=== PATIENT | female | born 1960 | race Caucasian/White ===

== ENCOUNTER → 2016-05-22 | Outpatient (CLI) | payer BC ==
--- NOTE | 2016-05-22 14:04 | US ---
EXAMINATION TYPE: US thyroid st tissue head/neck DATE OF EXAM: 05/22/2016 1:14 PM COMPARISON: IN PACS CLINICAL HISTORY: E05.90 THRYOTOXICOSIS W/O CRISIS OR STORM. F/U Nodules GLAND SIZE: Right Lobe: 5.0 x 1.7 x 1.9 cm Overall Parenchyma: heterogenous Left Lobe: 4.6 x 1.7 x 1.6 cm Overall Parenchyma: heterogeneous Isthmus Thickness: 0.3 cm NODULES RIGHT: # of nodules measured on right: 3 1. 1.4 X 1.3 x 1.3 cm hypoechoic mixed nodule at the mid pole with well-defined margins; This nodul e is wider than tall and shows intranodular vascularity. Prior size: 1.2 x 1.3 x 1.4 cm 2. 0.8 X 0.6 x 0.7 cm hypoechoic solid nodule at the lower pole with well-defined margins; This nodu le is wider than tall and shows intranodular vascularity. Prior size: 1.0 x 0.6 x 0.9 cm 3. 0.7 X 0.5 x 0.6 cm isoechoic solid nodule at the lower pole with poorly defined margins; This nod ule is wider than tall and shows intranodular vascularity. Prior size: 0.9 x 0.4 x 0.9 cm LEFT: # of nodules measured on left: 4 1. 1.2 X 1.1 x 1.2 cm isoechoic solid nodule at the lower pole with well-defined margins; This nodu le is wider than tall and shows intranodular vascularity. Prior size: 1.3 x 1.1 x 1.2 cm 2. 1.2 X 0.7 x 0.9 cm isoechoic solid nodule at the mid pole with well-defined margins; This nodule is wider than tall and shows intranodular vascularity. Prior size: 1.5 x 0.8 x 1.1 cm 3. 0.7 X 0.7 x 0.6 cm isoechoic solid nodule at the upper pole with well-defined margins; This nodu le is wider than tall and shows intranodular vascularity. Prior size: 1.4 x 0.8 x 0.9 cm 4. 0.7 X 0.4 x 0.5 cm hypoechoic mixed nodule at the upper pole with well-defined margins; This nod ule is wider than tall and shows intranodular vascularity. Prior size: 0.7 x 0.4 x 0.6 cm ISTHMUS: # of nodules measured in the isthmus: TECHNOLOGIST IMPRESSION: Bilateral neck scanned, no abnormal lymphadenopathy noted/ Stable nodules b ilaterally IMPRESSION: 1. Multiple bilateral thyroid nodules. A couple of these nodules may have increased slightly in size over the interval detailed above.
== END | disposition home or self-care (01) ==
LOC: RADUSWWP 12:24
PROVIDERS: ATTEND Internal Medicine Endocrinology, Diabetes & Metabolism
DX: E04.2 Nontoxic multinodular goiter (principal); E05.90 Thyrotoxicosis, unspecified without thyrotoxic crisis or storm
CPT/HCPCS: 76536

== ENCOUNTER → 2016-05-22 | Outpatient (CLI) | payer BC ==
[2016-05-22 09:49] LABS: CH 31.6; CHCM 33.7; HCT 42.5 % (34.0-46.0); HDW 2.49; HGB 14.5 gm/dL (11.4-16.0); MCH 32.1 pg (25.0-35.0); MCHC 34.1 g/dL (31.0-37.0); MCV 94.1 fL (80.0-100.0); Mean Platelet Volume 7.6; RBC 4.52 m/uL (3.80-5.40); RDW 12.2 % (11.5-15.5); WBC 9.5 k/uL (3.8-10.6)
[2016-05-22 10:17] LABS: ALT 32 U/L (9-52); AST 22 U/L (14-36); Alkaline Phosphatase 74 U/L (38-126); Anion Gap 13 mmol/L; Blood Urea Nitrogen 17 mg/dL (7-17); Calcium 9.7 mg/dL (8.4-10.2); Carbon Dioxide 24 mmol/L (22-30); Chloride 109 mmol/L (98-107); Glucose 204 mg/dL (74-99); Non-African American GFR(MDRD) >60 (>60 ml/min/1.73 sqM); Potassium 4.3 mmol/L (3.5-5.1); Sodium 146 mmol/L (137-145); Total Bilirubin 0.5 mg/dL (0.2-1.3); Total Protein 7.5 g/dL (6.3-8.2)
== END | disposition home or self-care (01) ==
LOC: LABWHC1 09:24
PROVIDERS: ATTEND Internal Medicine Endocrinology, Diabetes & Metabolism
DX: E05.90 Thyrotoxicosis, unspecified without thyrotoxic crisis or storm (principal)
CPT/HCPCS: 36415; 80053; 84439; 84443; 84445; 84480; 85027

== ENCOUNTER 2016-05-29 07:20 | Day surgery (SDC) | payer BC ==
[2016-05-23 15:33] VITALS: BMI 30.5
--- NOTE | 2016-05-28 14:22 | HP ---
DATE OF ADMISSION: 05/29/2016 Nadia Cerna is a 55-year-old patient seen with progressive right knee pain. After having options regarding treatment discussed, she elected to proceed with right knee arthroscopy. Consent was obtained. Medical clearance by Dr. Franky Paulino. Past medical history is hypertension, insulin-dependent diabetes, gastroesophageal reflux disease, hyperlipidemia, depression. Past surgical history is breast biopsy, cholecystectomy, hysterectomy, knee surgery, tonsillectomy. Daily medications are: 1. Aspirin. 2. Cozaar. 3. Gabapentin. 4. NovoLog. 5. Prilosec. 6. Topamax. 7. Zocor. 8. Mobic. 9. Cymbalta. Allergies are AUGMENTIN. SOCIAL HISTORY: Patient currently smokes cigarettes. Physical evaluation of the right knee: Her range of motion is 0 to 120 degrees, tenderness along the medial and lateral joint lines. Positive medial Bebeto's, positive lateral Bebeto's. Ligaments stable. Hip rotation without pain. Distal neurovascular exam is intact. Radiographs which were obtained of the right knee revealed mild osteoarthritis. An MRI of the right knee was obtained revealing an effusion. IMPRESSION: Internal derangement of right knee with meniscal tear versus osteochondral tear. PLAN: Right knee arthroscopy with partial meniscectomy versus chondroplasty and debridement.
[~2016-05-29 07:20] MED LIST: CLINDAMYCIN 900 MG in DEXTROSE 5% IN WATER 50 ML IVPB ONE; DEXAMETHASONE SOD PHOSPHATE 10 MG/ML 1 ML VIAL IV ONE; HYDROmorphone 1 MG/ML 1 ML SYRINGE IVP PRN; LACTATED RINGERS 1,000 ML IV SCH; LIDOCAINE 1% 20 ML VIAL (10MG/ML) FOR IV START INTRADERMA PRN; SCOPOLAMINE 1.5MG/72HR PATCH TRANSDERM ONE
[2016-05-29] MEDS ORDERED: ONDANSETRON 4 MG/2 ML VIAL IVP ONE (08:15)
[2016-05-29 08:22] LABS: Glucose,Whole Blood 124 mg/dL (75-99)
[2016-05-29] MEDS ORDERED: SUCCINYLCHOLINE CHLORIDE 100 MG/5 ML SYR IV ONE (08:30)
[2016-05-29] MEDS ORDERED: MIDAZOLAM 2 MG/2 ML VIAL ONE (08:30)
[2016-05-29] MEDS ORDERED: GLYCOPYRROLATE 0.2 MG/ML 2 ML VIAL ONE (08:30)
[2016-05-29] MEDS ORDERED: KETAMINE 10 MG/ML 20 ML VIAL ONE (08:30)
[2016-05-29] MEDS ORDERED: PROPOFOL 10 MG/ML 20 ML VIAL IV ONE (08:30)
[2016-05-29] MEDS ORDERED: NEOSTIGMINE 1 MG/ML 10 ML VIAL ONE (08:30)
[2016-05-29] MEDS ORDERED: ROCURONIUM BROMIDE 10 MG/ML 10 ML VIAL IV ONE (08:30)
[2016-05-29] MEDS ORDERED: fentaNYL (PF) 50 MCG/ML 2 ML AMP ONE (08:30)
[2016-05-29] MEDS ORDERED: BUPIVACAIN-EPI 0.25%-1:200,000 30 ML VIAL INTRAARTIC ONE (08:30)
[2016-05-29] MEDS ORDERED: LIDOCAINE 1% INJ 10MG/ML (20 ML MDV) ONE (08:30)
--- NOTE | 2016-05-29 09:28 | P.OP ---
Date of Procedure: 05/29/16 Preoperative Diagnosis: Internal derangement right knee Postoperative Diagnosis: 1. Tear medial meniscus right knee 2. 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 Grade 2 chondromalacia lateral femoral condyle right knee 4. Reactive synovitis medial and suprapatellar compartments right knee Procedure(s) Performed: 1. Arthroscopic partial medial meniscectomy right knee 2. Arthroscopic chondroplasty medial femoral condyle right knee 3. Arthroscopic chondroplasty lateral femoral condyle right knee 4. Arthroscopic partial synovectomy medial and suprapatellar compartments right knee Anesthesia: GETA Surgeon: Soto Maldonado Estimated Blood Loss (ml): 10 Pathology: none sent Condition: stable Disposition: PACU Indications for Procedure: 55-year-old patient seen with progressive right knee pain. After having options regarding treatment discussed, she elected to proceed with right knee arthroscopy. Operative Findings: See description of procedure Description of Procedure: Patient was taken to the operative suite. Patient underwent a general anesthetic by the department of anesthesia. Patient was given preoperative antibiotics. The right lower extremity was placed in a well-padded arthroscopic leg lugo. The right leg was prepped and draped in the normal sterile orthopedic fashion. A lateral parapatellar and suprapatellar incision was made. Trochars were inserted. Arthroscopy was initiated. Suprapatellar pouch revealed diffuse reactive synovitis. The patellofemoral joint appeared to articulate congruently. There was grade 1/2 chondromalacia of the patella with no osteochondral tears present. The scope was guided into the medial gutter. No loose bodies or plica were identified. The scope was then guided into the medial compartment. A medial parapatellar incision was made. Trocar inserted followed by probe. There was a radial tear posterior horn medial meniscus extending just into the midbody area. There were grade 2 and 3 chondromalacia changes the medial femoral condyle with some osteochondral tears present. There were grade 1 chondromalacia changes of the tibial plateau. Reactive synovitis anteriorly. No loose bodies. A partial medial meniscectomy performed on a stable tissue. I performed a chondroplasty of medial femoral condyle and partial synovectomy. The residual meniscus was found to be stable as was the residual osteochondral surface of medial femoral condyle. Scope and probe were then guided into the intercondylar notch. Cruciates were identified, probed and found to be stable. The scope and probe were then guided into lateral compartment. The lateral meniscus was found to be stable. There was an area of grade 2 chondromalacia central weightbearing surface lateral femoral condyle with osteochondral tears present. Grade 1 chondromalacia of the tibial plateau. No reactive synovitis or loose bodies. A chondroplasty was performed of lateral femoral condyle getting down to stable tissue. The residual area was probed and found to be stable. The scope was in guided back into the suprapatellar compartment. Motorize shaver was introduced into the super compartment. I debrided some piecemeal fragments of meniscus. I performed a partial synovectomy. Shaver was removed. I took one more look around the entire knee, no residual debris. Instruments were now removed from the joint. The joint was infiltrated with .25% Marcaine. Steri-Strips were applied to the portal sites. Sterile dressings were applied. The patient was placed into a MALENA hose. No tourniquet was utilized. The patient was awakened, transferred to a bed and taken to recovery stable satisfactory condition.
[2016-05-29] MEDS ORDERED: LACTATED RINGERS 1,000 ML IV ONE (09:43)
[2016-05-29 09:49] VITALS: TEMP 96.7
[2016-05-29 09:53] LABS: Glucose,Whole Blood 131 mg/dL (75-99)
[2016-05-29 10:16] VITALS: PULSE 90; RESP 18
[2016-05-29 10:31] VITALS: BP 140/89
== END 2016-05-29 10:50 | disposition home or self-care (01) ==
LOC: OR 07:20
PROVIDERS: ATTEND Orthopaedic Surgery
DX: S83.241A Other tear of medial meniscus, current injury, right knee, initial encounter (principal); M65.9 Synovitis and tenosynovitis, unspecified; M22.41 Chondromalacia patellae, right knee; I10 Essential (primary) hypertension; E03.9 Hypothyroidism, unspecified; E78.5 Hyperlipidemia, unspecified; E10.9 Type 1 diabetes mellitus without complications; F32.9 Major depressive disorder, single episode, unspecified; E55.9 Vitamin D deficiency, unspecified; F17.210 Nicotine dependence, cigarettes, uncomplicated; J45.909 Unspecified asthma, uncomplicated; B07.9 Viral wart, unspecified; M50.10 Cervical disc disorder with radiculopathy, unspecified cervical region; M85.80 Other specified disorders of bone density and structure, unspecified site; M94.9 Disorder of cartilage, unspecified; Z79.1 Long term (current) use of non-steroidal anti-inflammatories (NSAID); Z79.82 Long term (current) use of aspirin; Z79.4 Long term (current) use of insulin; Z79.891 Long term (current) use of opiate analgesic; Z79.51 Long term (current) use of inhaled steroids; Z79.899 Other long term (current) drug therapy; Z88.0 Allergy status to penicillin; X58.XXXA Exposure to other specified factors, initial encounter; Z96.41 Presence of insulin pump (external) (internal)
CPT/HCPCS: 29881; J2250; J1100; J2710; J2405; J2001; J3010; J1170; J0330; J2704

== ENCOUNTER → 2016-11-05 | Outpatient (CLI) | payer BC ==
--- NOTE | 2016-11-05 11:21 | NM ---
EXAMINATION TYPE: NM gastric emptying study DATE OF EXAM: 11/05/2016 COMPARISON: NONE HISTORY: Gastroparesis Following administration of mCi Tc 99m Sulfur Colloid with 1 cup of oatmeal projection images of the abdomen were obtained 5 minutes post ingestion. When possible, both anterior and posterior projection images were obtained to allow the calculation of the geometric mean activity. Clearance: 17 % Half-life: 240 min Gastroesophageal reflux: None IMPRESSION: Gastric emptying: Delayed with less than 17% emptying Gastroesophageal reflux: None Gastric emptying normal percentage values: 30 minutes: <70% of retention (> 30% emptying) suggests abnormally fast emptying. 60 minutes: <90% retention (>10% emptying) is normal; less than 30% retention (>70% emptying) suggest s abnormally rapid emptying. 90 minutes: <65% retention (> 35% emptying) is normal. 120 minutes: <60% retention (> 40% emptying) is normal. 180 minutes: <30% retention (> 70% emptying) is normal. Gastric emptying T-1/2: Solid: The normal range is 60-105 minutes Liquid only: Normal range is 10-45 minutes. Liquid only-children: At 60 minutes, normal range is 44-58 % . Liquid only-infants: At 60 minutes, normal range is 32-64 %. Additional references: Gastric Emptying Scintigraphy [email or web address]
== END | disposition home or self-care (01) ==
LOC: RADNMMAIN 07:24
PROVIDERS: ATTEND Internal Medicine
DX: K31.84 Gastroparesis (principal)
CPT/HCPCS: 78264; A9541

== ENCOUNTER → 2016-11-06 | Outpatient (CLI) | payer BC | END | disposition home or self-care (01) | LOC: LABWHC1 10:10 | PROVIDERS: ATTEND Surgery | DX: Z09 Encounter for follow-up examination after completed treatment for conditions other than malignant neoplasm (principal); Z86.39 Personal history of other endocrine, nutritional and metabolic disease | CPT/HCPCS: 36415; 84439; 84443; 84481 ==

== ENCOUNTER → 2017-01-01 | Outpatient (CLI) | payer BC | END | disposition home or self-care (01) | LOC: LABWHC1 11:44 | PROVIDERS: ATTEND Surgery Plastic and Reconstructive Surgery | DX: E04.1 Nontoxic single thyroid nodule (principal) | CPT/HCPCS: 36415; 84439; 84443; 84481 ==

== ENCOUNTER 2017-01-07 09:31 | Observation (INO) | payer BC ==
[2016-12-30 16:23] VITALS: BMI 29.9
[~2017-01-07 09:31] MED LIST changes: -CLINDAMYCIN 900 MG in DEXTROSE 5% IN WATER 50 ML IVPB ONE; -DEXAMETHASONE SOD PHOSPHATE 10 MG/ML 1 ML VIAL IV ONE; +HYDROmorphone 0.5 MG/0.5 ML SYRINGE IVP PRN; -HYDROmorphone 1 MG/ML 1 ML SYRINGE IVP PRN; -LIDOCAINE 1% 20 ML VIAL (10MG/ML) FOR IV START INTRADERMA PRN; +MIDAZOLAM 2 MG/2 ML VIAL IV PRN; +Pre Op ABX Message 1 EACH MISC MISCELLANE ONE; -SCOPOLAMINE 1.5MG/72HR PATCH TRANSDERM ONE
[2017-01-07] MEDS: DEXAMETHASONE SOD PHOSPHATE 10 MG/ML 1 ML VIAL IV ONE ×2 (10:14→17:31)
[2017-01-07] MEDS ORDERED: LIDOCAINE 1% 20 ML VIAL (10MG/ML) FOR IV START INTRADERMA ONE (10:14)
[2017-01-07] MEDS: ONDANSETRON 4 MG/2 ML VIAL IVP ONE ×2 (10:14→17:31)
[2017-01-07] MEDS: SCOPOLAMINE 1.5MG/72HR PATCH TRANSDERM ONE ×2 (10:14→17:32)
[2017-01-07] MEDS: HEPARIN SODIUM,PORCINE 5,000 UNIT/ML 1 ML VIAL SQ ONE ×2 (10:15→17:30)
[2017-01-07] MEDS ORDERED: ceFAZolin 1,000 MG in DEXTROSE/WATER 1 50ML.BAG IVPB STA (10:17)
[2017-01-07 10:23] LABS: Glucose,Whole Blood 160 mg/dL (75-99)
[2017-01-07] MEDS ORDERED: HEPARIN SODIUM,PORCINE 5,000 UNIT/ML 1 ML VIAL SQ ONE (11:02)
[2017-01-07] MEDS ORDERED: PHENYLEPHRINE-0.9% NACL SYG 1 MG/10 ML SYRINGE ONE (11:24)
[2017-01-07] MEDS ORDERED: PROPOFOL 10 MG/ML 20 ML VIAL IV ONE (11:24)
[2017-01-07] MEDS ORDERED: fentaNYL (PF) 50 MCG/ML 2 ML AMP ONE (11:24)
[2017-01-07] MEDS ORDERED: HYDROmorphone (PF) 1 MG/ML ONE (11:24)
[2017-01-07] MEDS ORDERED: SUCCINYLCHOLINE CHLORIDE 100 MG/5 ML SYR IV ONE (11:24)
[2017-01-07] MEDS ORDERED: LIDOCAINE 1% INJ 10MG/ML (20 ML MDV) ONE (11:24)
[2017-01-07] MEDS ORDERED: MIDAZOLAM 2 MG/2 ML VIAL ONE (11:24)
[2017-01-07] MEDS ORDERED: LACTATED RINGERS 1,000 ML IV ONE (13:03)
[2017-01-07 13:41] LABS: Glucose,Whole Blood 192 mg/dL (75-99)
[2017-01-07 14:33] LABS: Glucose,Whole Blood 198 mg/dL (75-99)
[2017-01-07] MEDS ORDERED: THROMBIN (BOVINE) 5,000 UNIT VIAL TOPICAL ONE (14:41)
[2017-01-07] MEDS ORDERED: GELATIN SPONGE,ABSORB (LARGE) 1 EACH SPONGE TOPICAL ONE (14:41)
[2017-01-07] MEDS ORDERED: HYDROcodone/APAP 5-325MG 1 EACH TAB PO PRN (15:11)
[2017-01-07] MEDS ORDERED: BENZOCAINE/MENTHOL LOZENG 1 EACH LOZENGE MUCOUS MEM PRN (15:11)
[2017-01-07] MEDS ORDERED: NALOXONE 0.4 MG/ML 1 ML VIAL IV PRN (15:11)
[2017-01-07] MEDS ORDERED: ONDANSETRON 4 MG/2 ML VIAL IVP PRN (15:11)
--- NOTE | 2017-01-07 15:11 | P.OP ---
Date of Procedure: 01/07/17 Preoperative Diagnosis: Hyperthyroidism, multiple bilateral nodules Postoperative Diagnosis: Hyperthyroidism, multiple bilateral nodules Procedure(s) Performed: Total thyroidectomy Anesthesia: HUBER Surgeon: Jillian Rehman Estimated Blood Loss (ml): 80 IV fluids (ml): 1,500 Urine output (ml): 250 Pathology: other (Thyroid gland, tissue sent for r/o parathyroid intraoperatively) Condition: stable Disposition: PACU Indications for Procedure: Hyperthyroidism Operative Findings: Inflamed thyroid gland was scar tissue noted greater on the right than on the left Description of Procedure: The patient was taken to the operating room and following induction of general anesthesia the patient was placed in the beach-chair position with hyperextension of the neck. The neck was prepped and draped in a sterile fashion. Prior to this nerve stimulator probes were placed in the anterior chest wall. An incision was made in the neck anteriorly approximately 2 fingerbreadths above the sternal notch. This was placed through a prior collar incision which had been used for a cervical neck surgery. The dissection was carried through the skin and subcutaneous tissue down to the platysma. Superior and inferior skin flaps were developed. The strap muscles were in the midline. There was scar tissue present. The right lobe of the thyroid was approached initially. A moderate to extensive scar tissue involving the right lobe of the thyroid was noted. This was carefully dissected free and the superior pole of the left was identified and the superior pole vessels were ligated and divided using the Harmonic scalpel. A similar fashion the inferior pole vessels were identified these were ligated and divided using the Harmonic scalpel as well. The lobe was rotated medially and the identified and these proved to be superior inferior parathyroids which were preserved. The recurrent laryngeal nerve was identified and preserved. The lobe was rotated up onto the trachea. Multiple small vessels were ligated and divided using the Harmonic scalpel. A small portion of tissue on the thyroid gland was suspicious for parathyroid tissue and this was sent for frozen section which was negative for parathyroid tissue. The left lobe of the thyroid was then approached. The lobe was rotated medially. Again there was scar tissue present but not as extensive as on the right side. Inferior pole vessels were identified these were ligated and divided as were superior pole vessels. The lobe was rotated medially being careful to identify and preserve the recurrent laryngeal nerve. The superior and inferior parathyroids were identified and preserved. Again multiple small vessels were identified which were ligated and divided. The gland was dissected onto the trachea and the gland was removed. Palpation of the neck did not reveal any adenopathy of concern on either side. The neck was then well irrigated. There was no evidence of any bleeding. Gelfoam and thrombin was placed at the ligament of Zhu on each side. A Priya drain was split and put in place. The strap muscles were closed using a 3-0 Vicryl suture. This was followed by closure of the platysma using 3-0 Vicryl suture. The skin was closed with 4-0 Monocryl. The drain was secured with a nylon suture. All instrument and sponge counts were correct at the end of the case. The patient tolerated procedure in stable condition.
[2017-01-07 15:48] LABS: Glucose,Whole Blood 201 mg/dL (75-99)
[2017-01-07] MEDS ORDERED: INSULIN LISPRO (humaLOG) 300 UNIT/3 ML VIAL SQ ONE (15:50)
[2017-01-07] MEDS: HEPARIN SODIUM,PORCINE 5,000 UNIT/ML 1 ML VIAL SQ SCH ×2 (17:33→23:20)
[2017-01-07] MEDS: SODIUM CHLORIDE 0.9% 1,000 ML IV SCH (17:56)
[2017-01-07] MEDS: CALCIUM CARB-VIT D 500MG-200UN 1 EACH TAB PO SCH (18:56)
[2017-01-07] MEDS: HYDROmorphone 1 MG/ML 1 ML SYRINGE IV PRN (21:07)
[2017-01-07] MEDS ORDERED: LORazepam 0.5 MG TAB PO PRN (21:39)
[2017-01-07] MEDS ORDERED: CYCLOBENZAPRINE 10 MG TAB PO PRN (21:39)
[2017-01-07] MEDS: TOPIRAMATE 25 MG TAB PO SCH ×2 (22:59→23:04)
[2017-01-07] MEDS: lamoTRIgine 100 MG TAB PO SCH (23:00)
[2017-01-07] MEDS: METOCLOPRAMIDE 10 MG TAB PO SCH (23:01)
[2017-01-07] MEDS: GABAPENTIN 100 MG CAP PO SCH (23:03)
[2017-01-07] MEDS: ZIPRASIDONE 60 MG CAP PO SCH (23:05)
[2017-01-07] MEDS: Insulin Aspart (For Pump) 100 UNIT/ML VIAL SQ-PUMP SCH (23:11)
[2017-01-08] MEDS: HYDROmorphone 1 MG/ML 1 ML SYRINGE IV PRN ×6 (00:27→20:14)
[2017-01-08] MEDS: SODIUM CHLORIDE 0.9% 1,000 ML IV SCH ×2 (03:02→17:45)
--- NOTE | 2017-01-08 07:14 | CONS ---
CONSULTATION DATE OF CONSULTATION: January 07, 2017. REASON FOR CONSULTATION: Medical management requested by Dr. Latesha Rehman. CONSULTATION: This is a pleasant 56-year-old patient who has a multinodular goiter. The patient underwent a total thyroidectomy today. The patient having some pain at the operative site. Allowed clear liquids. The patient has a rather extensive medical history. Chronic stable medical conditions include diabetes mellitus type 2, fibromyalgia, GERD, hyperlipidemia, hypertension, seizure disorder, hypothyroid, hiatal hernia, migraines, initial bowel syndrome, back and neck pain. REVIEW OF SYSTEMS: Review of systems difficult to obtain as the patient is rather lethargic. PAST MEDICAL HISTORY: Diabetes mellitus type 2, fibromyalgia, GERD, hyperlipidemia, hypertension, seizure disorder, hypothyroid, hiatal hernia, migraines, irritable bowel syndrome, back and neck pain. PAST SURGICAL HISTORY: Breast surgery, cholecystectomy, ear surgery, hysterectomy, tonsillectomy, tubal ligation, bilateral breast surgery, bilateral breast lumpectomy, bilateral carpal tunnel release, right thumb surgery, EGD, right ear tube, anterior cervical decompression and fusion. Past psych history of anxiety, depression. SOCIAL HISTORY: The patient quit smoking in 1992, smoked a pack a pack and half a day for 30 years. Has medical marijuana. The patient is . FAMILY HISTORY: Patient is adopted. PHYSICAL EXAMINATION: Vital signs on presentation on examination temperature 97.3, pulse 105, respiration 14, blood pressure 140/72, pulse ox 95% on 3 L. GENERAL APPEARANCE: Well built, BMI 30, lying in bed, tired appearing. Eyes: Pupils are equal. Conjunctivae normal. HEENT: Oral cavity normal. Neck dressing in place. JVD unable to assess. Respiratory effort lungs fair entry. CARDIOVASCULAR: First and second sounds normal. No edema. ABDOMEN: Soft, nontender. Liver and spleen not palpable. Lymphatics: No lymph nodes palpable in neck or axillae. PSYCHIATRY: Alert and oriented x3. Mood and affect normal. Neurological: Pupils equal, cranial nerves grossly intact. Power and sensation grossly intact. ASSESSMENT: 1. Total thyroidectomy for multinodular goiter. 2. Diabetes mellitus type 2 on insulin, chronically insulin pump. 3. Chronic fibromyalgia. 4. Gastroesophageal reflux disease. 5. Essential hypertension. 6. Hyperlipidemia. 7. Seizure disorder chronic. 8. Hiatal hernia. 9. Anxiety, depression, not otherwise specified. 10.Obesity; BMI 30. PLAN: Home medications are resumed. Patient is able to adjust insulin pump based on the sugars. Diet will be advanced per surgery. The patient has got Venodyne boots for DVT prophylaxis. Care was discussed with the patient. The patient does follow with Dr. Paulino as a family doctor and Dr. Cummingss, professor computer science. Care was discussed with the patient. Thank you, Dr. Rehman. MMTODL / KELLYN: [id number] /
[2017-01-08] MEDS: CALCIUM CARB-VIT D 500MG-200UN 1 EACH TAB PO SCH ×2 (08:28→17:42)
[2017-01-08] MEDS: HEPARIN SODIUM,PORCINE 5,000 UNIT/ML 1 ML VIAL SQ SCH ×3 (08:29→23:13)
[2017-01-08] MEDS: DULoxetine HCL 60 MG CAPSULE.DR PO SCH (08:29)
[2017-01-08] MEDS: lamoTRIgine 100 MG TAB PO SCH ×2 (08:30→20:10)
[2017-01-08] MEDS: GABAPENTIN 100 MG CAP PO SCH ×2 (08:30→20:10)
[2017-01-08] MEDS: LOSARTAN 25 MG TAB PO SCH (08:31)
[2017-01-08] MEDS: TOPIRAMATE 25 MG TAB PO SCH ×2 (08:32→20:11)
[2017-01-08] MEDS: METOCLOPRAMIDE 10 MG TAB PO SCH ×3 (08:32→23:13)
[2017-01-08] MEDS: ZIPRASIDONE 40 MG CAP PO SCH (08:33)
--- NOTE | 2017-01-08 08:58 | P.PN ---
Subjective Progress Note Date: 01/08/17 56-year-old female seen and examined this morning the dressing removed from operative site moderate amount of bloody drainage noted. Drain in place. Patient is postop total thyroidectomy for hyperthyroidism multiple bilateral nodules. No facial numbness noted voice is not hoarse. Patient states is able to swallow without difficulty. Patient does have a history of a prior cervical neck surgery Calcium this morning 9.2 Objective - Vital Signs Vital signs: Vital Signs Temp 97.0 F L 01/08/17 08:00 Pulse 75 01/08/17 08:00 Resp 20 01/08/17 08:00 BP 148/70 01/08/17 08:00 Pulse Ox 97 01/08/17 08:00 Intake & Output 01/07/17 01/08/17 01/08/17 18:59 06:59 18:59 Intake Total 1750 970 Output Total 330 Balance 1420 970 Weight 74.389 kg Intake: IV 1750 Intake, IV Titration 970 Amount Sodium Chloride 0.9% 1, 970 000 ml @ 100 mls/hr IV . Q10H REMY Rx#:[id number] Output: Urine 250 Estimated Blood Loss 80 Other: # Voids 1 - Exam GENERAL APPEARANCE: 56-year-old female patient is alert, oriented, in no acute distress. Sitting up in bed taking a diet no difficulty no hoarseness noted to the voice no facial numbness noted VITAL SIGNS: Reviewed HEENT: Head is normocephalic and atraumatic. Pupils are equal and reactive. The nares are patent. Oropharynx is clear without lesions. NECK: Supple without lymphadenopathy. Traches midline. Dressing removed from surgical site moderate amount of bloody drainage noted a Priya drain in place HEART: S1, S2. Regular rate and rhythm. No murmur noted denying chest pain LUNGS: No crackles or wheezes are heard. Adequate air movement bilaterally ABDOMEN: Soft, nontender, nondistended with good bowel sounds. No peritoneal signs. No palpable organomegaly or masses. EXTREMITIES: Normal skin color and turgor. No cyanosis, rash, ulceration, clubbing or edema. Radial pedal pulses are 2/4 bilaterally. NEUROLOGICAL: No focal deficits. Strength and sensation are grossly intact. - Labs Labs: Abnormal Lab Results - Last 24 Hours (Table) 01/07/17 01/07/17 01/07/17 Range/Units 10:07 13:32 14:28 POC Glucose (mg/dL) 160 H 192 H 198 H (75-99) mg/dL 01/07/17 Range/Units 15:46 POC Glucose (mg/dL) 201 H (75-99) mg/dL Assessment and Plan Assessment: Impression A history of hyperthyroidism with bilateral multiple nodules Total thyroidectomy postop done on January 07 for multiple bilateral nodules History of prior cervical neck surgery Hyperlipidemia Mood disorder Plan Resume home meds as appropriate Dressing to be changed from surgical site as indicated Prepped for probable discharge in the next 24 hours Repeat calcium now follow up on results Dr. Rico auto body shop manager to evaluate await recommendations Continue postop surgical care The above impression and plan of care have been discussed and directed by signing physician. Joann Meyer nurse practitioner acting as scribe for signing physician.
--- NOTE | 2017-01-08 17:25 | P.PN ---
Progress Note - Text Progress Note Date: 01/08/17 DATE OF SERVICE: 01/08/2017 PRESENTING COMPLAINT: Thyroidectomy HISTORY OF PRESENT ILLNESS: 56-year-old female with a multinodular goiter status post thyroidectomy. INTERVAL HISTORY: 01/08/2017: Patient seen in follow-up, lying in bed appears uncomfortable continues to have pain with swallowing no difficulty breathing, dressing noted to have drainage on it, drain in place draining serous sinus drainage. Tolerating her liquid diet, ambulatory to and from the bathroom. Last BM prior to admission. REVIEW OF SYSTEMS: Done for constitutional ,cardiovascular, GI, pulmonary with relevant findings as above. CURRENT MEDICATIONS [place] one tablet every 4 hours, Lipitor 20 mg by mouth at bedtime, Flexeril 10 mg by mouth 3 times a day, Cymbalta 120 mg by mouth every morning, Neurontin 100 mg by mouth twice a day, heparin 5000 units subcu every 8 hours, Dilaudid 1 mg IV every 3 hours for severe pain. Lamictal 150 mg by mouth twice a day, Ativan half a milligram by mouth 3 times a day when necessary, Cozaar 25 mg by mouth every morning, Reglan 5 mg by mouth 3 times a day, Topamax 50 mg by mouth twice a day. Geodon, 40 mg by mouth every morning. PHYSICAL EXAM VITAL SIGNS: Temperature 97.0, pulse 75, respiratory rate 20, blood pressure for 148/70, oxygen saturation 97% on room air. GENERAL APPEARANCE: Lying in bed, anxious appearing. EYES: Pupils equal. Conjunctiva normal. NECK: JVD not raised. Mass not palpable. Midline surgical site dressing with bloody drainage noted, RESPIRATORY: Respiratory effort normal. Lungs clear to auscultation. CARDIOVASCULAR: First and second sounds normal. No edema. ABDOMEN: Soft. Liver and spleen not palpable. No tenderness. No mass palpable. PSYCHIATRY: Alert and oriented x3. Mood and affect normal. INVESTIGATIONS: Calcium 9.2, ASSESSMENT: -Total thyroidectomy for multinodular Goiter -Diabetes mellitus type 2 on insulin, chronically insulin pump. -Chronic fibromyalgia. -Gastroesophageal reflux disease. -Essential hypertension. -Hyperlipidemia. -Seizure disorder chronic, -Hiatal hernia -Anxiety depression not otherwise specified. -Obesity, BMI 30. PLAN: Continue diabetes management with patient's insulin pump, diet to be advanced by surgery. Continue close monitoring of calcium, await input from Dr. Rico exterminator termite. Plan of care discussed with patient the bedside she is in agreement. We will follow closely. TECHNICAL SALES SPECIALIST statement: Patient was seen and examined by nurse practitioner Yuly Gonzalez and all elements of the case discussed with attending Dr. Meeks
[2017-01-08] MEDS: ZIPRASIDONE 60 MG CAP PO SCH (20:11)
[2017-01-08] MEDS ORDERED: ATORVASTATIN 20 MG TAB PO SCH (21:00)
--- NOTE | 2017-01-08 22:02 | PN ---
PROGRESS NOTE DATE OF SERVICE: 01/08/17 ATTENDING NOTE: This patient seen and examined by me. I discussed with my nurse practitioner, Ms. Gonzalez. The patient is status post total thyroidectomy, has had some pain in the operative site. Tolerating a liquid diet. PHYSICAL EXAMINATION: Afebrile, blood pressure 140/70. LUNGS: Clear. CARDIOVASCULAR: 1st and 2nd sounds are normal. Glucose was noted. Calcium is noted. ASSESSMENT: 1. Total thyroidectomy for multinodular goiter. 2. Diabetes mellitus type 2 on insulin pump. The patient will be seen by Dr. Rico from Endocrinology. Care was discussed with the patient. Advance diet as tolerated. MMODL / IJN: [id number] /
[2017-01-08 23:16] VITALS: RESP 20
[2017-01-09] MEDS: Insulin Aspart (For Pump) 100 UNIT/ML VIAL SQ-PUMP SCH (01:54)
[2017-01-09] MEDS: HYDROmorphone 1 MG/ML 1 ML SYRINGE IV PRN (05:30)
[2017-01-09 07:41] LABS: Anion Gap 8 mmol/L; Blood Urea Nitrogen 15 mg/dL (7-17); Calcium 8.5 mg/dL (8.4-10.2); Carbon Dioxide 26 mmol/L (22-30); Chloride 111 mmol/L (98-107); Glucose 53 mg/dL (74-99); Non-African American GFR(MDRD) >60 (>60 ml/min/1.73 sqM); Potassium 3.6 mmol/L (3.5-5.1); Sodium 145 mmol/L (137-145)
[2017-01-09] MEDS: SODIUM CHLORIDE 0.9% 1,000 ML IV SCH (07:44)
[2017-01-09] MEDS: CALCIUM CARB-VIT D 500MG-200UN 1 EACH TAB PO SCH (07:56)
[2017-01-09] MEDS: HEPARIN SODIUM,PORCINE 5,000 UNIT/ML 1 ML VIAL SQ SCH (07:56)
[2017-01-09] MEDS: METOCLOPRAMIDE 10 MG TAB PO SCH (07:57)
[2017-01-09] MEDS: ZIPRASIDONE 40 MG CAP PO SCH (07:58)
--- NOTE | 2017-01-09 08:05 | P.PN ---
Subjective Progress Note Date: 01/09/17 Patient is postop day #2 from total thyroidectomy for hyperthyroidism. Her voice is strong at this time she has no complaints of numbness or tingling in her fingers or toes are in. Oral area. She is tolerating diet without difficulty and has had minimal drainage from her Priya drain. Objective - Vital Signs Vital signs: Vital Signs Temp 98.0 F 01/08/17 23:15 Pulse 75 01/08/17 23:15 Resp 20 01/08/17 23:15 BP 130/68 01/08/17 23:15 Pulse Ox 95 01/08/17 23:15 Intake & Output 01/08/17 01/09/17 01/09/17 18:59 06:59 18:59 Intake Total 120 360 Balance 120 360 Intake: Oral 120 360 Other: # Voids 1 - Constitutional General appearance: Present: obese - EENT Eyes: Present: EOMI - Neck Details: Incision is clean and minimal drainage over the past [address] [place] drain in place - Psychiatric Psychiatric: Present: A&O x's 3, appropriate affect, intact judgment & insight - Labs CBC & Chem 7: 01/09/17 06:42 Labs: Abnormal Lab Results - Last 24 Hours (Table) 01/09/17 Range/Units 06:42 Chloride 111 H (98-107) mmol/L Glucose 53 L (74-99) mg/dL Assessment and Plan Assessment: Impression/plan: 1. Calcium 8.5 this a.m. down from 9.2 2. Minimal serous drainage from incision site [place] drain removed Plan: 1. Discharge patient home on [place] if okay with endocrinology 2. follow Up with Dr. Renner in 1 week
--- NOTE | 2017-01-09 08:11 | P.DS ---
Providers Date of admission: 01/08/17 01:48 Attending physician: Jillian Rehman Consults: 01/07/17 15:15 Consult Physician Routine Consulting Provider: Angle Rico Consult Reason/Comments: total thyroidectomy, hyperthyroidism Do you want consulting provider notified?: Yes 01/07/17 15:16 Consult Physician Routine Consulting Provider: Bridger Meeks Consult Reason/Comments: medical managment Do you want consulting provider notified?: Yes Primary care physician: Franky Bradley Hospital Course: Patient is a 56-year-old white female status post total thyroidectomy 2 days ago for hyperparathyroidism. She is doing well postoperative however today her calcium was noted to be 8.5. She has no symptoms of hypocalcemia and the plan is for discharge home if okay with endocrinology. Procedures: total thyroidctomy Plan - Discharge Summary Discharge Rx Participant: Yes New Discharge Prescriptions: No Action Cholecalciferol [Vitamin D3] 2,500 unit PO DAILY LORazepam [Ativan] 0.5 mg PO TID PRN PRN Reason: Anxiety Cyclobenzaprine [Flexeril] 10 mg PO TID PRN PRN Reason: Pain Aspirin EC [Ecotrin] 81 mg PO DAILY Gabapentin [Neurontin] 100 mg PO BID Topiramate [Topamax] 50 mg PO BID Simvastatin [Zocor] 40 mg PO HS Losartan [Cozaar] 25 mg PO QAM Meclizine [Antivert] 25 mg PO DAILY PRN PRN Reason: Vertigo Cranberry Fruit Extract [Cranberry] 1,000 mg PO BID Fluticasone Propionate 2 spray EA NOSTRIL DAILY DULoxetine HCL [Cymbalta] 120 mg PO QAM Methimazole 3mg 1.5 mg PO QAM lamoTRIgine [LaMICtal] 150 mg PO BID Biotin 10,000 mcg PO DAILY Ziprasidone [Geodon] 40 mg PO QAM Multivitamins, Thera [Multivitamin (formulary)] 1 tab PO DAILY Insulin Aspart (For Pump) [NovoLOG (For Pump)] 0.01 unit SQ-PUMP CONTINUOUS Metoclopramide [Reglan] 5 mg PO TID Ziprasidone [Geodon] 60 mg PO HS Discharge Medication List Aspirin EC [Ecotrin] 81 mg PO DAILY 04/27/15 [History] Cholecalciferol [Vitamin D3] 2,500 unit PO DAILY 04/27/15 [History] Cyclobenzaprine [Flexeril] 10 mg PO TID PRN 04/27/15 [History] Gabapentin [Neurontin] 100 mg PO BID 04/27/15 [History] LORazepam [Ativan] 0.5 mg PO TID PRN 04/27/15 [History] Losartan [Cozaar] 25 mg PO QAM 04/27/15 [History] Meclizine [Antivert] 25 mg PO DAILY PRN 04/27/15 [History] Simvastatin [Zocor] 40 mg PO HS 04/27/15 [History] Topiramate [Topamax] 50 mg PO BID 04/27/15 [History] Cranberry Fruit Extract [Cranberry] 1,000 mg PO BID 05/10/15 [History] Biotin 10,000 mcg PO DAILY 05/23/16 [History] DULoxetine HCL [Cymbalta] 120 mg PO QAM 05/23/16 [History] Fluticasone Propionate 2 spray EA NOSTRIL DAILY 05/23/16 [History] Methimazole 3mg 1.5 mg PO QAM 05/23/16 [History] lamoTRIgine [LaMICtal] 150 mg PO BID 05/23/16 [History] Multivitamins, Thera [Multivitamin (formulary)] 1 tab PO DAILY 12/31/16 [History ] Ziprasidone [Geodon] 40 mg PO QAM 12/31/16 [History] Insulin Aspart (For Pump) [NovoLOG (For Pump)] 0.01 unit SQ-PUMP CONTINUOUS [History] Metoclopramide [Reglan] 5 mg PO TID 01/02/17 [History] Ziprasidone [Geodon] 60 mg PO HS 01/08/17 [History] Follow up Appointment(s)/Referral(s): Jillian Remhan MD [STAFF PHYSICIAN] - 1 Week Activity/Diet/Wound Care/Special Instructions: 1. Discharge contingent on endocrine approval 2. Os-Nguyễn as per endocrinology with vitamin D 3. Patient instructed if she develops any numbness or tingling in her fingers or toes in the perioral area she is to call immediately Discharge Disposition: HOME SELF-CARE
[2017-01-09 08:24] LABS: Glucose,Whole Blood 102 mg/dL (75-99)
[2017-01-09 08:35] VITALS: BP 131/82; PULSE 84; TEMP 97.5
[2017-01-09] MEDS: LOSARTAN 25 MG TAB PO SCH (09:36)
[2017-01-09] MEDS: TOPIRAMATE 25 MG TAB PO SCH (09:36)
[2017-01-09] MEDS: lamoTRIgine 100 MG TAB PO SCH (09:36)
[2017-01-09] MEDS: DULoxetine HCL 60 MG CAPSULE.DR PO SCH (09:39)
[2017-01-09] MEDS: GABAPENTIN 100 MG CAP PO SCH (09:40)
--- NOTE | 2017-01-09 18:02 | PN ---
PROGRESS NOTE DATE OF SERVICE: 01/09/17. PRESENTING COMPLAINT: Thyroid surgery. INTERVAL HISTORY: Patient is status total thyroidectomy. Pain is better. Did tolerate liquid diet. Has been out of bed. Breathing is stable. REVIEW OF SYSTEMS: Done for constitutional, cardiovascular, GI, pulmonary and relevant findings as above. CURRENT MEDICATIONS: Reviewed. PHYSICAL EXAMINATION: Temperature 97.5, pulse 84, respiratory 20, blood pressure 113/82. Pulse ox 95% on room air. General appearance: Sitting up comfortable. Eyes: Pupils equal. Conjunctivae normal. Neck dressing was in place. Tenderness present. Psych: Alert and oriented times three. Mood and affect normal. LUNGS: Clear. Cardiovascular first and second sounds normal. No edema. ASSESSMENT: 1. Total thyroidectomy for multinodular goiter. 2. Diabetes mellitus type 2, insulin, chronic insulin pump. 3. Chronic fibromyalgia. 4. Gastroesophageal reflux disease. 5. Essential hypertension. 6. Hyperlipidemia. 7. Chronic seizure disorder. 8. Hiatal hernia. 9. Anxiety, depression, not otherwise specified. 10.Obesity; BMI 30. PLAN: Continue current medication and treatment plan. The patient should follow with family doctor, granite fabricator and postop care per by Dr. Latesha Rehman. MMODL / IJN: [id number] /
== END 2017-01-09 10:48 | disposition home or self-care (01) ==
LOC: OR 09:31 → 6PED 15:15 → OR 01-08 01:48
PROVIDERS: ADMIT Surgery; ATTEND Surgery
DX: E05.20 Thyrotoxicosis with toxic multinodular goiter without thyrotoxic crisis or storm (principal); I10 Essential (primary) hypertension; E11.9 Type 2 diabetes mellitus without complications; Z96.41 Presence of insulin pump (external) (internal); M79.7 Fibromyalgia; K21.9 Gastro-esophageal reflux disease without esophagitis; Z79.4 Long term (current) use of insulin; G43.909 Migraine, unspecified, not intractable, without status migrainosus; G40.909 Epilepsy, unspecified, not intractable, without status epilepticus; E78.5 Hyperlipidemia, unspecified; K58.9 Irritable bowel syndrome, unspecified; F41.9 Anxiety disorder, unspecified; F39 Unspecified mood [affective] disorder; K44.9 Diaphragmatic hernia without obstruction or gangrene; Z68.30 Body mass index [BMI] 30.0-30.9, adult; E66.9 Obesity, unspecified; Z79.82 Long term (current) use of aspirin; Z79.899 Other long term (current) drug therapy; Z87.891 Personal history of nicotine dependence; Z88.0 Allergy status to penicillin; Z79.51 Long term (current) use of inhaled steroids
CPT/HCPCS: 60240; 88305; 80048; 82310 ×2; 88331; 88307; G0378 ×2; J2250; J1644 ×3; J1100; J2405; J2001; J3010; J1170 ×3; J0690; J2370; J0330; J2704

== ENCOUNTER 2017-05-19 09:59 | Day surgery (SDC) | payer BC ==
[2017-05-14 16:18] VITALS: BMI 31.1
--- NOTE | 2017-05-19 05:22 | HP ---
HISTORY AND PHYSICAL CHIEF COMPLAINT: Fluid in the right ear. HISTORY OF PRESENT ILLNESS: This patient is a 56-year-old female who was recently seen in my office complaining of decreased hearing in the right ear. The patient states that approximately 1 year ago she had a tube placed in the right ear, but apparently it fell out. Since that time, the hearing in the right ear has been decreasing. She is a nonsmoker. At the time that she was seen in my office, clinical examination of the ears revealed a chronic right serous otitis media. Because the patient's symptoms had been present for more than 1 month, it was felt that medical treatment would not be effective and therefore it was recommended that the patient undergo a right myringotomy with insertion of a ventilation tube under IV sedation with MAC. PAST MEDICAL HISTORY: Past medical history reveals that the patient has an allergy to AUGMENTIN. Current medications include losartan, simvastatin, Neurontin, Lamictal, Topamax, Cymbalta, Ativan, Flexeril, Flonase, NovoLog insulin, Brianna and Synthroid. There is no history of asthma. PREVIOUS SURGERIES: Previous surgeries include right myringotomy with insertion of ventilation tube, tonsillectomy, adenoidectomy, surgery on both wrists and both knees, cholecystectomy, full abdominal hysterectomy, surgery on the left and right thumb, benign bilateral breast biopsies, neck fusion and total thyroidectomy. REVIEW OF SYSTEMS: Review of systems revealed that the cardiovascular system is positive for hypertension. Metabolic endocrine system is positive for type 1 diabetes mellitus and hypercholesterolemia. Musculoskeletal skeletal system is positive for fibromyalgia. The remainder of the review of systems is essentially unremarkable. PHYSICAL EXAMINATION: This patient is a 56-year-old female who is alert and cooperative. HEENT EXAMINATION: Patient is normocephalic. Examination of the left ear is unremarkable. Examination of the right ear reveals the right tympanic membrane is dull with evidence of fluid in the right middle ear space. Pupils are equal, round, react to light and accommodation. Extraocular movements within normal limits. Intranasal examination reveals moderate septal deviation with compensatory hypertrophy of the inferior turbinates and a moderate amount of mucus on the mucous membranes and draining down the posterior pharynx. Examination of oropharynx, palpation of the neck, cranial nerves 2 through 12 and the remainder of the head and neck exam all within normal limits. CHEST/CARDIOVASCULAR: Both lung navarro are clear to percussion and auscultation. The patient is in regular sinus rhythm. S1 and S2 are present without evidence of murmurs, S3s or S4. Peripheral pulses are bilaterally symmetrical and within normal limits. ABDOMEN: There is no evidence the masses megaly or tenderness. The abdomen is soft. Skin is unremarkable. Musculoskeletal and neurological are within normal limits. PELVIC/RECTAL EXAM: The pelvic/rectal exam is deferred at this time because the patient has this done on a regular basis at her family physician's office. The remainder of physical exam is unremarkable. IMPRESSION: Chronic right serous otitis media. PLAN: The patient is scheduled to undergo a right myringotomy with insertion of ventilation tubes under IV sedation with MAC in the a.m. ATTENTION RNS IN THE PRE-SURGICAL AREA: I have not ordered any pre-surgical prophylactic antibiotics for this patient. If the pharmacy department sends any pre- surgical prophylactic antibiotics to the pre-surgical area for this patient, that order should be cancelled and the medication should be returned to the pharmacy department and make sure that the patient receives full credit to her account. I have discussed the risks, benefits and alternative therapies for the above-mentioned procedure and for both sedation/analgesia as well as necessary blood product administration, if indicated, as they pertain to this patient. The patient has indicated his or her understanding and acceptance of the risks and procedures discussed. MMODL / IJN: [id number] /
[~2017-05-19 09:59] MED LIST changes: +DEXAMETHASONE SOD PHOSPHATE 10 MG/ML 1 ML VIAL IV ONE; -HYDROmorphone 0.5 MG/0.5 ML SYRINGE IVP PRN; +LIDOCAINE 1% 20 ML VIAL (10MG/ML) FOR IV START INTRADERMA PRN; -MIDAZOLAM 2 MG/2 ML VIAL IV PRN; +MORPHINE SULFATE 2 MG/ML SYRINGE IV PRN; +SCOPOLAMINE 1.5MG/72HR PATCH TRANSDERM ONE
[2017-05-19 10:54] LABS: Glucose,Whole Blood 157 mg/dL (75-99)
[2017-05-19] MEDS ORDERED: PROPOFOL 10 MG/ML 20 ML VIAL IV ONE (10:59)
[2017-05-19] MEDS ORDERED: MIDAZOLAM 2 MG/2 ML VIAL ONE (10:59)
[2017-05-19] MEDS ORDERED: fentaNYL (PF) 50 MCG/ML 2 ML AMP ONE (10:59)
[2017-05-19] MEDS ORDERED: OFLOXACIN 0.3% OPHTH DROPS 5 ML BOTTLE RIGHT EAR ONE (11:08)
[2017-05-19 11:36] VITALS: RESP 16; TEMP 97.2
[2017-05-19 11:38] LABS: Glucose,Whole Blood 165 mg/dL (75-99)
[2017-05-19 12:11] VITALS: BP 134/76; PULSE 79
--- NOTE | 2017-05-19 22:53 | OP ---
OPERATIVE REPORT DATE OF SERVICE: 05/19/2017. PREOPERATIVE DIAGNOSIS: Chronic right serous otitis media. POSTOPERATIVE DIAGNOSIS: Chronic right serous otitis media. ANESTHESIA: IV sedation with MAC. OPERATIVE PROCEDURE: Right myringotomy with insertion of Activent ventilation tube. SURGEON: Willy Mcnamara MD COMPLICATIONS: None. ESTIMATED BLOOD LOSS: Zero. OPERATIVE PROCEDURE: The patient was placed on the operating table in supine position. After uneventful IV sedation, satisfactory sedation was obtained. Next the patient's right ear was draped in the usual and customary fashion. Following this, using the Zeiss operating microscope and a #3 aural speculum, the right external auditory canal was cleansed of all wax and debris. Next, the myringotomy knife was used to make an incision in the anterior inferior quadrant of the right tympanic membrane. The right middle ear space was suctioned free of all fluid and debris. Next, an Activent Rebeca-Bobbin style ventilation tube was inserted through the previously made myringotomy incision without difficulty. At this point, the procedure was terminated. There were no intraoperative complications. The patient tolerated the procedure well and was returned to the recovery room in satisfactory condition. MMODL / IJN: [id number] /
== END 2017-05-19 12:24 | disposition home or self-care (01) ==
LOC: OR 09:59
PROVIDERS: ATTEND Otolaryngology
DX: H65.21 Chronic serous otitis media, right ear (principal); E89.0 Postprocedural hypothyroidism; I10 Essential (primary) hypertension; E10.9 Type 1 diabetes mellitus without complications; E78.00 Pure hypercholesterolemia, unspecified; M79.7 Fibromyalgia; R56.9 Unspecified convulsions; K21.9 Gastro-esophageal reflux disease without esophagitis; Z96.41 Presence of insulin pump (external) (internal); Z79.890 Hormone replacement therapy; Z79.4 Long term (current) use of insulin; Z79.51 Long term (current) use of inhaled steroids; Z79.899 Other long term (current) drug therapy; Z88.1 Allergy status to other antibiotic agents; Z87.891 Personal history of nicotine dependence; Z98.1 Arthrodesis status
CPT/HCPCS: 69436; J2250; J1100; J3010; J2704